=== PATIENT | male | born 1940 | race Caucasian/White ===

== ENCOUNTER → 2016-04-20 13:32 | Outpatient (CLI) | payer MEDICARE, BC ==
[2015-10-15 12:12] VITALS: BMI 33.2
[~2016-04-20 13:32] MED LIST: BAYER CHEWABLE81 MG PO; CO Q-1050 MG PO; COLCRYS0.6 MG PO; COREG6.25 MG; COREG6.25 MG PO; CORGARD20 MG PO; DIABETA5 MG PO; ELIQUIS2.5 MG PO; ELIQUIS5 MG PO; FEXOFENADINE H180 MG PO; K-DUR20 MEQ PO; LANOXIN125 MCG PO; LASIX40 MG PO; LIPITOR40 MG PO; MULTI-DAY VITAM1 TAB PO; NAC600 MG PO; NORVASC5 MG PO; PACERONE200 MG PO; PLAVIX75 MG PO; PROTONIX40 MG PO; SENNA LAXATIVE8.6 MG PO; ULTRAM50 MG PO; VITAMIN B-12500 MCG PO; ZYLOPRIM300 MG PO
== END | disposition home or self-care (01) ==
LOC: D.CT 13:32
PROVIDERS: Internal Medicine Cardiovascular Disease
DX: R79.89 Other specified abnormal findings of blood chemistry (principal)

== ENCOUNTER 2017-08-03 07:27 | Emergency (ER) | payer MEDICARE, BC ==
[2015-10-15 12:12] VITALS: BMI 33.2
== END 2017-08-03 09:03 | disposition home or self-care (01) ==
LOC: D.ER 07:27
DX: S60.222A Contusion of left hand, initial encounter (principal); S40.012A Contusion of left shoulder, initial encounter; W19.XXXA Unspecified fall, initial encounter; Y93.89 Activity, other specified; Y92.019 Unspecified place in single-family (private) house as the place of occurrence of the external cause; I10 Essential (primary) hypertension; E11.9 Type 2 diabetes mellitus without complications